=== PATIENT | male | born 1970 | race Caucasian/White ===

== ENCOUNTER → 2022-08-21 | Day surgery (SDC) | payer BC | END | disposition home or self-care (01) | LOC: SDC 08:05 | PROVIDERS: ATTEND Internal Medicine | DX: K22.4 Dyskinesia of esophagus (principal); R19.7 Diarrhea, unspecified | CPT/HCPCS: 91010 ==

== ENCOUNTER 2022-09-03 07:07 | Outpatient (CLI) | payer BC | END 2022-09-03 07:08 | disposition home or self-care (01) | LOC: BICCT 07:07 | PROVIDERS: ATTEND Physician Assistant Medical | DX: K22.89 Other specified disease of esophagus (principal); R19.7 Diarrhea, unspecified | CPT/HCPCS: 74177; 82565 ==